=== PATIENT | male | born 1940 | race African-American/Black ===

== ENCOUNTER 2018-10-31 10:35 | Emergency (ER) | payer MEDICARE, MEDICAID ==
[~2018-10-31] VITALS: Ht 182.9 cm; Wt 90.0 kg
[~2018-10-31 10:35] MED LIST: AMIT10TA6; LISI-186; METO25TA3; NITR0.4T; TRAM50TA3; WARF1TAB46
[2018-10-31 11:00] VITALS: BP 108/65
== END 2018-10-31 11:30 | disposition left against medical advice (07) ==
LOC: ER 10:35
DX: R07.89 Other chest pain (principal); I11.9 Hypertensive heart disease without heart failure; Z95.0 Presence of cardiac pacemaker; Z88.6 Allergy status to analgesic agent; Z88.8 Allergy status to other drugs, medicaments and biological substances; Z79.899 Other long term (current) drug therapy; Z79.01 Long term (current) use of anticoagulants
CPT/HCPCS: 93005; 99283